=== PATIENT | male | born 1975 | race Two or more races ===

== ENCOUNTER 2018-01-29 14:41 | Inpatient (IN) | payer OTHER ==
[~2018-01-29] VITALS: Ht 175.3 cm; Wt 81.6 kg
[2018-01-29] MEDS ORDERED: AFRIN15 ML NS (14:58)
[2018-02-04] MEDS ORDERED: METRONIDAZOLE500 MG PO (08:30)
[2018-02-04] MEDS ORDERED: PEPCID20 MG PO (08:30)
[2018-02-04] MEDS ORDERED: CIPRO500 MG PO (08:30)
== END 2018-02-04 08:56 | disposition home or self-care (01) | DRG 872 ==
LOC: ER 14:41 → MEDJ 19:55
PROC: BW21ZZZ Computerized Tomography (CT Scan) of Abdomen and Pelvis (ICD-10-PCS; principal; 2018-01-29)
DX: A41.9 Sepsis, unspecified organism (principal); K57.32 Diverticulitis of large intestine without perforation or abscess without bleeding

== ENCOUNTER 2018-06-30 15:23 | Emergency (ER) | payer OTHER ==
[~2018-06-30] VITALS: Ht 177.8 cm; Wt 79.4 kg
[~2018-06-30 15:23] MED LIST: AFRIN15 ML NS; CIPRO500 MG PO; METRONIDAZOLE500 MG PO; PEPCID20 MG PO
== END 2018-06-30 20:18 | disposition home or self-care (01) ==
LOC: ER 15:23
DX: N45.1 Epididymitis (principal); N50.811 Right testicular pain

== ENCOUNTER 2020-10-16 15:55 | Inpatient (IN) | payer OTHER ==
[~2020-10-16] VITALS: Ht 175.3 cm; Wt 83.9 kg
== END 2020-11-04 10:07 | disposition home or self-care (01) | DRG 391 ==
LOC: ER 15:55 → MEDI 10-17 10:16 → SURH 10-17 10:16
PROVIDERS: ADMIT Internal Medicine; ATTEND Internal Medicine
PROC: 02HV33Z Insertion of Infusion Device into Superior Vena Cava, Percutaneous Approach (ICD-10-PCS; 2020-10-19)
PROC: 0W9J30Z Drainage of Pelvic Cavity with Drainage Device, Percutaneous Approach (ICD-10-PCS; principal; 2020-10-27)
DX: K57.20 Diverticulitis of large intestine with perforation and abscess without bleeding (principal); K65.1 Peritoneal abscess; B37.0 Candidal stomatitis; R94.5 Abnormal results of liver function studies

== ENCOUNTER 2020-11-09 15:59 | Inpatient (IN) | payer OTHER ==
[~2020-11-09] VITALS: Ht 175.3 cm; Wt 77.1 kg
[2020-11-09] MEDS ORDERED: AUMENTIN (17:06)
[2020-11-10] MEDS ORDERED: AMOX-CLAV 875-1 EAC1 (15:19)
[2020-11-10] MEDS ORDERED: PANTOPRAZOLE SO40 MG (15:19)
== END 2020-11-29 10:21 | disposition home or self-care (01) | DRG 391 ==
LOC: ER 15:59 → SEC-K 11-10 08:42 → MEDI 11-11 01:35 → MEDJ 11-14 15:36
PROVIDERS: ADMIT Internal Medicine; ATTEND Internal Medicine
PROC: 0W9F30Z Drainage of Abdominal Wall with Drainage Device, Percutaneous Approach (ICD-10-PCS; principal; 2020-11-11)
PROC: 02H633Z Insertion of Infusion Device into Right Atrium, Percutaneous Approach (ICD-10-PCS; 2020-11-13)
PROC: 8E0ZXY6 Isolation (ICD-10-PCS; 2020-11-14)
PROC: 4A12X4Z Monitoring of Cardiac Electrical Activity, External Approach (ICD-10-PCS; 2020-11-14)
DX: K57.20 Diverticulitis of large intestine with perforation and abscess without bleeding (principal); K65.1 Peritoneal abscess; T36.7X5A Adverse effect of antifungal antibiotics, systemically used, initial encounter; F41.8 Other specified anxiety disorders; R00.0 Tachycardia, unspecified; Z20.822 Contact with and (suspected) exposure to COVID-19

== ENCOUNTER 2020-12-13 12:45 | Outpatient (CLI) | payer OTHER ==
[~2020-12-13 12:45] MED LIST changes: +AMOX-CLAV 875-1 EAC1; +AUMENTIN; +PANTOPRAZOLE SO40 MG
== END 2020-12-13 12:46 | disposition home or self-care (01) ==
LOC: EKG 12:45 → LAB 12:45
PROVIDERS: ATTEND Surgery
DX: I10 Essential (primary) hypertension (principal)

== ENCOUNTER 2020-12-17 12:15 | Inpatient (IN) | payer OTHER ==
[~2020-12-17] VITALS: Ht 177.8 cm; Wt 75.3 kg
[2020-12-17] MEDS ORDERED: TOPROL XL100 M1 PO (13:02)
[2020-12-23] MEDS ORDERED: HYOSCYAMINE0.125 M1 SL (11:08)
[2020-12-23] MEDS ORDERED: OXYC1TAB9 PO (11:08)
[2020-12-23] MEDS ORDERED: INTESTINEX680 M1 PO (11:08)
[2020-12-23] MEDS ORDERED: PANTOPRAZOLE SO40 MG PO (11:09)
== END 2020-12-23 14:11 | disposition home or self-care (01) | DRG 331 ==
LOC: EDBD 12-20 07:18 → O/R 12-20 07:18 → SURH 12-20 07:18
PROVIDERS: ADMIT Surgery; ATTEND Surgery
PROC: 0DTP4ZZ Resection of Rectum, Percutaneous Endoscopic Approach (ICD-10-PCS; 2020-12-20)
PROC: 0DBN4ZZ Excision of Sigmoid Colon, Percutaneous Endoscopic Approach (ICD-10-PCS; principal; 2020-12-20 12:45)
DX: K57.20 Diverticulitis of large intestine with perforation and abscess without bleeding (principal)